=== PATIENT | female | born 1975 | race Caucasian/White ===

== ENCOUNTER → 2021-12-09 | Outpatient (CLI) | payer BC | LOC: MC.RAD 14:07 | DX: Z12.31 Encounter for screening mammogram for malignant neoplasm of breast (principal); N64.89 Other specified disorders of breast ==

== ENCOUNTER → 2021-12-13 | Outpatient (CLI) | payer BC | LOC: MC.RAD 09:56 | DX: N63.10 Unspecified lump in the right breast, unspecified quadrant (principal) ==

== ENCOUNTER → 2021-12-24 | Outpatient (CLI) | payer BC | LOC: MC.RAD 07:52 | DX: R92.8 Other abnormal and inconclusive findings on diagnostic imaging of breast (principal); Z98.82 Breast implant status ==